=== PATIENT | male | born 1995 | race Two or more races ===

== ENCOUNTER 2024-08-08 15:33 | Emergency (ER) | payer OTHER ==
[~2024-08-08] VITALS: Ht 175.3 cm; Wt 56.7 kg
[2024-08-08] MEDS ORDERED: FAMOTIDINE/PF 20 MG/2 ML VIAL ONE (17:00)
[2024-08-08] MEDS ORDERED: ONDANSETRON HCL 2 MG/ML VIAL ONE (17:00)
[2024-08-08] MEDS ORDERED: KETOROLAC TROMETHAMINE 60 MG VIAL IM ONE (17:00)
[2024-08-08 17:52] LABS: HEMATOCRIT 39.1 % (39.0-48.0); HEMOGLOBIN 13.4 g/dL (13-16.00); MEAN CELL VOLUME 97.6 fL (80.0-100.00); MEAN CORPUSCULAR HEMOGLOBIN 33.3 pg (27.00-32.0); MEAN CORPUSCULAR HGB CONC 34.1 g/dl (32.0-36.0); PLATELET COUNT 209 K/uL (150-450); RED BLOOD COUNT 4.01 M/uL (4.00-6.00); RED CELL DISTRIBUTION WIDTH 12.1 % (11.5-14.5)
[2024-08-08 18:12] LABS: ALBUMIN 3.9 gm/dL (3.4-5.0); BILIRUBIN TOTAL 0.87 mg/dL (0.3-1.2); BILIRUBIN,CONJUGATED 0.22 mg/dL (0.0-0.2); BILIRUBIN,UNCONJUGATED 0.65 mg/dL (0.0-0.6); CALCIUM 9.1 mg/dL (8.5-10.1); CREATININE SERUM 0.83 mg/dL (0.70-1.30); GFR 110.32; POTASSIUM 3.78 mEq/L (3.5-5.1); TOTAL PROTEIN 8.9 gm/dL (6.4-8.2)
== END 2024-08-08 19:31 | disposition home or self-care (01) ==
LOC: ER 15:33
PROVIDERS: Emergency Medicine
DX: K29.70 Gastritis, unspecified, without bleeding (principal)

== ENCOUNTER 2024-08-09 10:13 | Emergency (ER) | payer OTHER ==
[~2024-08-09] VITALS: Ht 175.3 cm; Wt 56.7 kg
[2024-08-09] MEDS ORDERED: 0.9 % SODIUM CHLORIDE 1,000 ML IV STA (10:56)
[2024-08-09] MEDS ORDERED: FAMOtidine 10 MG/ML (4ML VIAL) IV STA (10:56)
[2024-08-09] MEDS ORDERED: METOCLOPRAMIDE HCL 5 MG/ML VIAL ONE (11:00)
[2024-08-09] MEDS ORDERED: METOCLOPRAMIDE HCL 10 MG in 0.9 % SODIUM CHLORIDE 50 ML IV ONE (11:00)
[2024-08-09] MEDS ORDERED: FAMOTIDINE/PF 20 MG/2 ML VIAL ONE (11:00)
[2024-08-09 12:12] LABS: HEMATOCRIT 38.2 % (39.0-48.0); HEMOGLOBIN 13.3 g/dL (13-16.00); MEAN CELL VOLUME 96.3 fL (80.0-100.00); MEAN CORPUSCULAR HEMOGLOBIN 33.6 pg (27.00-32.0); MEAN CORPUSCULAR HGB CONC 34.9 g/dl (32.0-36.0); PLATELET COUNT 208 K/uL (150-450); RED BLOOD COUNT 3.96 M/uL (4.00-6.00); RED CELL DISTRIBUTION WIDTH 12.3 % (11.5-14.5)
[2024-08-09 12:12] LABS: URINE APPEARANCE Clear; URINE BILIRRUBIN Negative (NEGATIVE); URINE BLOOD Negative; URINE COLOR Yellow; URINE GLUCOSE Negative (NEGATIVE); URINE LEUKOCYTE Negative; URINE NITRATE Negative; URINE PROTEIN Trace (NEGATIVE)
[2024-08-09 12:16] LABS: URINE WBC 2.6 uL (0.0-23.2)
[2024-08-09 12:56] LABS: ALBUMIN 3.8 gm/dL (3.4-5.0); BILIRUBIN TOTAL 1.05 mg/dL (0.3-1.2); BILIRUBIN,CONJUGATED 0.25 mg/dL (0.0-0.2); BILIRUBIN,UNCONJUGATED 0.8 mg/dL (0.0-0.6); CALCIUM 9.1 mg/dL (8.5-10.1); CREATININE SERUM 0.92 mg/dL (0.70-1.30); GFR 97.96; POTASSIUM 3.72 mEq/L (3.5-5.1); TOTAL PROTEIN 8.6 gm/dL (6.4-8.2)
[2024-08-09 12:58] LABS: URINE BACTERIA 1.2 uL (0.0-1933); URINE CAST 0.14 uL (0.0-1.40); URINE EPITHELIAL CELLS 0.4 uL (0.0-38.8); URINE KETONE 80 (NEGATIVE); URINE RBC 0.8 uL (0.0-20.8)
== END 2024-08-09 15:47 | disposition home or self-care (01) ==
LOC: ER 10:13
PROVIDERS: General Practice
DX: K52.9 Noninfective gastroenteritis and colitis, unspecified (principal); R10.9 Unspecified abdominal pain